=== PATIENT | male | born 1950 | race Caucasian/White ===

== ENCOUNTER 2017-01-12 07:01 | Observation (INO) | payer MEDICARE, OTHER ==
[~2017-01-12] VITALS: Ht 170.2 cm; Wt 84.0 kg
[2017-01-12] VITALS (12 sets, daily range): BP systolic 134–172; BP diastolic 65–82; PULSE 54–72; RESP 16–21; TEMP 98–98.4; O2SAT 96–100
[~2017-01-12 07:01] MED LIST: TAB-TAB PO; TYLOX PO
--- NOTE | 2017-01-12 07:25 | PD ---
HPI Chief Complaint: Chest Pain Time Seen by Provider: 07:15 Travel History International Travel<30 days: No Contact w/Intl Traveler<30days: No Traveled to known affect area: No History of Present Illness HPI 66-year-old male complains of chest pain. Patient states that he has intermittent chest pain for about a week and a half. Patient states that the chest pain became persistent for the past 4-5 days. Patient states the pain aching pain started on the left chest with radiation left-sided neck and left arm. Patient states that he has history of recurrent neck pain and shoulder pain is not sure the pain related to the chest pain. Patient states that he has nausea. Patient denies diaphoresis. Patient denies palpitation. Patient states that the chest pain is not associated with exertion. Patient states the chest pain is worse at night. Patient denies history hypertension, diabetes. Patient has history of hyperlipidemia. Patient is not on medication for that. Patient states that he was given medication for hyperlipidemia in the past however unable to tolerated. Patient is a nonsmoker. Patient has family history of heart disease. Patient states that he takes aspirin daily. Last dose of aspirin was last night. PFSH Past Medical History Cardiovascular Problems: No High Cholesterol: Yes Diabetes: No Diminished Hearing: No Hypertension: Yes Influenza Vaccination: No Social History Alcohol Use: Yes (OCCASIONALLY) Tobacco Use: No Substance Use: Yes (OCCASIONAL MARIJUANA) Allergies-Medications (Allergen,Severity, Reaction): Coded Allergies: ampicillin (Unverified Adverse Reaction, Severe, NAUSEA, 10/27/16) Reported Meds & Prescriptions Reported Meds & Active Scripts Active Reported Aspirin 81 (Aspirin) 81 Mg Tabdr 81 Mg PO DAILY Review of Systems General / Constitutional: No: Fever Eyes: No: Visual changes HENT: No: Headaches Cardiovascular: Positive: Chest Pain or Discomfort Respiratory: No: Shortness of Breath Gastrointestinal: No: Abdominal Pain Genitourinary: No: Dysuria Musculoskeletal: No: Pain Skin: No Rash Neurologic: No: Weakness Psychiatric: No: Depression Endocrine: No: Polydipsia Hematologic/Lymphatic: No: Easy Bruising Physical Exam Narrative GENERAL: Well-nourished, well-developed patient. SKIN: Focused skin assessment warm/dry. HEAD: Normocephalic. EYES: No scleral icterus. No injection or drainage. NECK: Supple, trachea midline. No JVD or lymphadenopathy. CARDIOVASCULAR: Regular rate and rhythm without murmurs, gallops, or rubs. RESPIRATORY: Breath sounds equal bilaterally. No accessory muscle use. GASTROINTESTINAL: Abdomen soft, non-tender, nondistended. MUSCULOSKELETAL: No cyanosis, or edema. BACK: Nontender without obvious deformity. No CVA tenderness. Neurologic exam normal. Data Data Last Documented VS Vital Signs Date Time Temp Pulse Resp B/P (MAP) Pulse Ox O2 Delivery O2 Flow Rate FiO2 01/12/17 07:11 Room Air 01/12/17 07:02 98.0 64 16 158/79 (105) 97 Orders Orders Electrocardiogram (01/12/17 ) Complete Blood Count With Diff (01/12/17 07:21) Comprehensive Metabolic Panel (01/12/17 07:21) Creatine Kinase (Cpk) (01/12/17 07:21) Troponin I (01/12/17 07:21) Prothrombin Time / Inr (Pt) (01/12/17 07:21) Act Partial Throm Time (Ptt) (01/12/17 07:21) Chest, Single Ap (01/12/17 07:21) Iv Access Insert/Monitor (01/12/17 07:21) Ecg Monitoring (01/12/17 07:21) Oximetry (01/12/17 07:21) Labs Laboratory Tests Test 01/12/17 07:28 White Blood Count 5.8 TH/MM3 Red Blood Count 4.80 MIL/MM3 Hemoglobin 15.0 GM/DL Hematocrit 44.2 % Mean Corpuscular Volume 92.0 FL Mean Corpuscular Hemoglobin 31.3 PG Mean Corpuscular Hemoglobin Concent 34.0 % Red Cell Distribution Width 13.4 % Platelet Count 168 TH/MM3 Mean Platelet Volume 9.3 FL Neutrophils (%) (Auto) 51.7 % Lymphocytes (%) (Auto) 39.5 % Monocytes (%) (Auto) 6.8 % Eosinophils (%) (Auto) 1.0 % Basophils (%) (Auto) 1.0 % Neutrophils # (Auto) 3.0 TH/MM3 Lymphocytes # (Auto) 2.3 TH/MM3 Monocytes # (Auto) 0.4 TH/MM3 Eosinophils # (Auto) 0.1 TH/MM3 Basophils # (Auto) 0.1 TH/MM3 CBC Comment DIFF FINAL Differential Comment Prothrombin Time 10.9 SEC Prothromb Time International Ratio 1.0 RATIO Activated Partial Thromboplast Time 25.0 SEC Blood Urea Nitrogen 15 MG/DL Creatinine 0.99 MG/DL Random Glucose 93 MG/DL Total Protein 6.8 GM/DL Albumin 3.7 GM/DL Calcium Level 8.8 MG/DL Alkaline Phosphatase 50 U/L Aspartate Amino Transf (AST/SGOT) 16 U/L Alanine Aminotransferase (ALT/SGPT) 30 U/L Total Bilirubin 0.6 MG/DL Sodium Level 141 MEQ/L Potassium Level 3.8 MEQ/L Chloride Level 105 MEQ/L Carbon Dioxide Level 31.3 MEQ/L Anion Gap 5 MEQ/L Estimat Glomerular Filtration Rate 75 ML/MIN Total Creatine Kinase 124 U/L Troponin I 0.02 NG/ML MDM Medical Decision Making Medical Screen Exam Complete: Yes Emergency Medical Condition: Yes Interpretation(s) Last Impressions Chest X-Ray 01/12/17720 Signed Impressions: Service Date/Time: Thursday, January 12, 2017 07:45 - CONCLUSION: No acute disease. Juventino Fuller MD 8:12 AM. CBC within normal limit. CMP within normal limit. Cardiac enzymes are normal. Differential Diagnosis Differential diagnosis including musculoskeletal, angina, NE, PE, pneumothorax. Narrative Course 66-year-old male with left-sided chest pain. Aspirin 325 mg by mouth. Patient will be admitted to the chest pain center. Diagnosis Primary Impression: Chest pain Qualified Codes: R07.9 - Chest pain, unspecified Admitting Information Admitting Physician Requests: Pancho Baker MD Jan 12, 2017 07:25
[2017-01-12] MEDS ORDERED: ASPI-110 PO (07:37)
[2017-01-12 07:43] LABS: BASOPHIL # 0.1 TH/MM3 (0-0.2); EOSINOPHIL # 0.1 TH/MM3 (0-0.4); HEMATOCRIT 44.2 % (39.0-51.0); LYMPH % 39.5 % (9.0-44.0); LYMPHOCYTE # 2.3 TH/MM3 (1.0-4.8); MEAN CORPUSCULAR HEMOGLOBIN 31.3 PG (27.0-34.0); MEAN PLATELET VOLUME 9.3 FL (7.0-11.0); MONO % 6.8 % (0.0-8.0); MONOCYTE # 0.4 TH/MM3 (0-0.9); NEUT % 51.7 % (16.0-70.0); PLATELET COUNT 168 TH/MM3 (150-450); RED CELL DISTRIBUTION WIDTH 13.4 % (11.6-17.2); WHITE BLOOD COUNT 5.8 TH/MM3 (4.0-11.0)
[2017-01-12 07:54] LABS: PROTHROMBIN TIME - PATIENT 10.9 SEC (9.8-11.6)
--- NOTE | 2017-01-12 07:55 | RADRPT ---
EXAM DATE/TIME: 01/12/2017 07:45 [facility] COMPARISON: No previous studies available for comparison. INDICATIONS : Midsternal chest pains radiating into left shoulder. MEDICAL HISTORY : Spinal stenosis SURGICAL HISTORY : Cervical fusion ENCOUNTER: Initial ACUITY: 4 - 6 days PAIN SCORE: 5/10 LOCATION: Left chest FINDINGS: A single view of the chest demonstrates the lungs to be symmetrically aerated without evidence of mas s, infiltrate or effusion. The cardiomediastinal contours are unremarkable. Postsurgical changes are identified in the cervical spine following anterior and posterior fusion. Old right-sided rib fractu res are noted. CONCLUSION: No acute disease. Juventino Fuller MD on January 12, 2017 at 7:53 Board Certified Radiologist. This report was verified electronically.
[2017-01-12 08:05] LABS: ALBUMIN 3.7 GM/DL (3.4-5.0); ALT (GPT) 30 U/L (12-78); AST (GOT) 16 U/L (15-37); BICARBONATE 31.3 MEQ/L (21.0-32.0); BLOOD UREA NITROGEN 15 MG/DL (7-18); CALCIUM 8.8 MG/DL (8.5-10.1); CHLORIDE 105 MEQ/L (98-107); CREATININE 0.99 MG/DL (0.60-1.30); GLOMERULAR FILTRATION RATE 75 ML/MIN (>89); GLUCOSE,RANDOM 93 MG/DL (74-106); SODIUM (NA) 141 MEQ/L (136-145)
[2017-01-12 08:09] LABS: ALKALINE PHOSPHATASE 50 U/L (45-117); TOTAL BILIRUBIN ADULT 0.6 MG/DL (0.2-1.0); TOTAL PROTEIN 6.8 GM/DL (6.4-8.2); TROPONIN I 0.02 NG/ML (0.02-0.05)
[2017-01-12] MEDS ORDERED: ASPIRIN 81 MG CHEW TAB PO ONE (08:30)
[2017-01-12] MEDS ORDERED: ACETAMINOPHEN 500 MG CPLT PO PRN (08:30)
[2017-01-12] MEDS ORDERED: ASPIRIN 81 MG CHEW TAB CHEW ONE (08:30)
[2017-01-12] MEDS ORDERED: SODIUM CHLORIDE 0.9% FLUSH 10 ML FLUSH IV FLUSH PRN (08:30)
[2017-01-12] MEDS ORDERED: ONDANSETRON HCL 4 MG/2 ML VIAL IV PUSH PRN (09:30)
[2017-01-12] MEDS ORDERED: NITROGLYCERIN 0.4 MG SL 25 TABS/BTL SL PRN (09:30)
[2017-01-12 11:32] LABS: TROPONIN I 0.02 NG/ML (0.02-0.05)
--- NOTE | 2017-01-12 14:28 | EKG ---
Date Performed: 01/12/2017 Time Performed: 10:45:13 PTAGE: 66 years EKG: SINUS BRADYCARDIA POSSIBLE INFERIOR MYOCARDIAL INFARCTION BORDERLINE ECG Since PREVIOUS TRACING , no significant change noted PREVIOUS TRACIN01/12/2017 07.31 DOCTOR: Aspen Kellogg Interpretating Date/Time 01/12/2017 14:27:24
--- NOTE | 2017-01-12 14:31 | HHI.HP ---
HPI Primary Care Physician PCP in [place] Chief Complaint Chest pain History of Present Illness 66-year-old male with history of hyperlipidemia (not currently on medications) presents to emergency room for further evaluation of chest pain. The last 2 weeks hasn't felt himself and experiencing fatigue. Reporting the last 4-5 days becoming worse, accompanied with a poor appetite,and chest pain. Location left anterior chest. Characterized as a "constant irritation." Denies discomfort to be dull, sharp, or exacerbated with exertion. Severity 03/24. No radiation of pain. Duration intermittent experiencing more pain than not. No associated symptoms of nausea, vomiting, dyspnea, or diaphoresis. No known precipitating factors. Relieving factors include stretching, exercising, or moving around. Pain goes away except with sleep, but returns once awakens. Taking a deep breath makes pain worse. No recent illness, fever, chills, injury , or recent trauma. Denies similar pain in the past. Review of Systems General: Fatigue 1-2 weeks, No weakness, fever, chills, or recent illness. Decrease appetite past week. HEENT: No OSORIO, no dysphasia CV: Continues to have chest pain as described above. No palpitations or dizziness. RESP: No SOB, cough, wheeze, recent respiratory illness, or sputum production. GI: No nausea, vomiting, or bowel changes, or diarrhea. No unintentional weight gain or weight loss. : No dysuria EXT: No lower leg edema, no paraesthesias MS: No discomfort, change in ROM, injury, or recent trauma. Chronic neck pain, past cervical surgeries. NEURO: No difficulty with balance, LOC, or motor/sensory deficits PSYCH: No anxiety, depression, or situational stress SKIN: No rashes, no concerning lesions Past Family Social History Allergies: Coded Allergies: ampicillin (Unverified Adverse Reaction, Severe, NAUSEA, 10/27/16) Past Medical History Hyperlipidemia, chronic neck and right shoulder pain Past Surgical History Cervical surgery Reported Medications Reported Meds & Active Scripts Active Reported Aspirin 81 (Aspirin) 81 Mg Tabdr 81 Mg PO DAILY Multiple vitamins. States taking 6-8 multiple vitamins, including a cholesterol vitamin, can't remember names of all vitamins. Unable to tolerate statins. Reports attempting multiple cholesterol medications. Active Ordered Medications Current Medications Medications (Trade) Dose Ordered Sig/Heron Route Start Time Stop Time Status Last Admin (NS Flush) 2 ml UNSCH PRN IV FLUSH 01/12/17 08:30 (NS Flush) 2 ml BID IV FLUSH 01/12/17 09:00 (Tylenol) 500 mg Q4H PRN PO 01/12/17 08:30 (Zofran Inj) 4 mg Q6H PRN IV PUSH 01/12/17 09:30 (Nitrostat Sl) 0.4 mg Q5M PRN SL 01/12/17 09:30 (Aspirin) 325 mg DAILY PO 01/13/17 09:00 Family History Noncontributory for early onset cardiovascular disease in mother, father, or siblings. Reports maternal uncle and most of his cousins have early onset cardiovascular disease. Social History No known coronary artery disease, hypertension, or diabetes. Known hyperlipidemia, statin intolerant. Quit smoking 40 years ago. Endorses social alcohol, amount varies. Denies any illegal drug use. Endorses an active lifestyle which includes contreras chi, weight lifting, cycling, and stretching. Lives in [place] in summer months and in [place] generally in winter months. Planning a trip to [place], leaving , will be gone for 3 months. Past cardiac testing None Physical Exam Vital Signs Vital Signs Date Time Temp Pulse Resp B/P (MAP) Pulse Ox O2 Delivery O2 Flow Rate FiO2 01/12/17 10:13 98.2 57 18 145/69 (94) 98 01/12/17 09:07 01/12/17 09:07 56 21 172/82 (112) 100 Room Air 01/12/17 08:30 97 21 01/12/17 07:11 Room Air 01/12/17 07:02 98.0 64 16 158/79 (105) 97 Room Air Physical Exam GENERAL: Alert WN, WD, NAD, male HEAD: NC, AT EYES: Sclera clear, conjunctiva without injection ENT: Mucous membranes pink and moist NECK: Supple, no masses, trachea midline CV: RRR, without murmur, rub, gallop, no JVD, S1-S2 no S3-S4. No carotid bruits. Chest wall pain reproducible with palpation. RESP: Clear lungs throughout bilateral, no crackles, wheeze, rhonchi, symmetrical chest rise, nonlabored, able to speak in full sentences ABD: Soft, NT, ND, no masses EXT: Pulses +24, no dependent edema MS: Normal tone 4 extremities, no obvious deformities, full range of motion NEURO: CN II through CN XII grossly intact, motor strength 5/5, gait WNL PSYCH: A+O 3, flat affect, appropriate speech, appropriate mood and affect, insight and judgment SKIN: Normal turgor, normal texture, no lesions, no rashes, brisk cap refill, even hair distribution Laboratory Laboratory Tests Test 01/12/17 07:28 01/12/17 10:35 White Blood Count 5.8 Red Blood Count 4.80 Hemoglobin 15.0 Hematocrit 44.2 Mean Corpuscular Volume 92.0 Mean Corpuscular Hemoglobin 31.3 Mean Corpuscular Hemoglobin Concent 34.0 Red Cell Distribution Width 13.4 Platelet Count 168 Mean Platelet Volume 9.3 Neutrophils (%) (Auto) 51.7 Lymphocytes (%) (Auto) 39.5 Monocytes (%) (Auto) 6.8 Eosinophils (%) (Auto) 1.0 Basophils (%) (Auto) 1.0 Neutrophils # (Auto) 3.0 Lymphocytes # (Auto) 2.3 Monocytes # (Auto) 0.4 Eosinophils # (Auto) 0.1 Basophils # (Auto) 0.1 CBC Comment DIFF FINAL Differential Comment Prothrombin Time 10.9 Prothromb Time International Ratio 1.0 Activated Partial Thromboplast Time 25.0 Blood Urea Nitrogen 15 Creatinine 0.99 Random Glucose 93 Total Protein 6.8 Albumin 3.7 Calcium Level 8.8 Alkaline Phosphatase 50 Aspartate Amino Transf (AST/SGOT) 16 Alanine Aminotransferase (ALT/SGPT) 30 Total Bilirubin 0.6 Sodium Level 141 Potassium Level 3.8 Chloride Level 105 Carbon Dioxide Level 31.3 Anion Gap 5 Estimat Glomerular Filtration Rate 75 Total Creatine Kinase 124 103 Troponin I 0.02 0.02 Creatine Kinase MB 1.2 Result Diagram: 01/12/1772701/12/17727 Imaging Last Impressions Chest X-Ray 01/12/17720 Signed Impressions: Service Date/Time: Thursday, January 12, 2017 07:45 - CONCLUSION: No acute disease. Juventino Fuller MD Course EKG Normal sinus bradycardia, small q waves inferiorly, no ST or T-segment changes Caprini VTE Risk Assessment Caprini VTE Risk Assessment: Mod/High Risk (score >= 2) Caprini Risk Assessment Model Point Value = 1 Point Value = 2 Point Value = 3 Point Value = 5 Age 41-60 Minor surgery BMI > 25 kg/m2 Swollen legs Varicose veins or History of unexplained or recurrent spontaneous Oral contraceptives or hormone replacement Sepsis (< 1 month) Serious lung disease, including pneumonia (< 1 month) Abnormal pulmonary function Acute myocardial infarction Congestive heart failure (< 1 month) History of inflammatory bowel disease Medical patient at bed rest Age 61-74 Arthroscopic surgery Major open surgery (> 45 min) Laparoscopic surgery (> 45 min) Malignancy Confined to bed (> 72 hours) Immobilizing plaster cast Central venous access Age >= 75 History of VTE Family history of VTE Factor V Leiden Prothrombin [id number] Lupus anticoagulant Anticardiolipin antibodies Elevated serum homocysteine Heparin-induced thrombocytopenia Other congenital or acquired thrombophilia Stroke (< 1 month) Elective arthroplasty Hip, pelvis, or leg fracture Acute spinal cord injury (< 1 month) Prophylaxis Regimen Total Risk Factor Score Risk Level Prophylaxis Regimen 0-1 Low Early ambulation 2 Moderate Order ONE of the following: *Sequential Compression Device (SCD) *Heparin 5000 units SQ BID 3-4 Higher Order ONE of the following medications: *Heparin 5000 units SQ TID *Enoxaparin/Lovenox 40 mg SQ daily (WT < 150 kg, CrCl > 30 mL/min) *Enoxaparin/Lovenox 30 mg SQ daily (WT < 150 kg, CrCl > 10-29 mL/min) *Enoxaparin/Lovenox 30 mg SQ BID (WT < 150 kg, CrCl > 30 mL/min) AND/OR *Sequential Compression Device (SCD) 5 or more Highest Order ONE of the following medications: *Heparin 5000 units SQ TID (Preferred with Epidurals) *Enoxaparin/Lovenox 40 mg SQ daily (WT < 150 kg, CrCl > 30 mL/min) *Enoxaparin/Lovenox 30 mg SQ daily (WT < 150 kg, CrCl > 10-29 mL/min) *Enoxaparin/Lovenox 30 mg SQ BID (WT < 150 kg, CrCl > 30 mL/min) AND *Sequential Compression Device (SCD) Assessment and Plan Assessment and Plan #1 Atypical chest pain-admitted to chest pain center. Ruled out with 3 sets of EKGs and cardiac enzymes. Will be seen and evaluated by Dr. Aspen Kellogg. Discussed the likelihood of completing exercise stress test after being seen by grinder mill operator. Patient is agreeable to plan of care, although is somewhat irritated and stating he would sign out AMA if his insurance would still cover visit. Agrees to wait for grinder mill operator and possible stress testing at this time. #2 Musculoskeletal pain-Toradol 30mg IV x1 dose rAiana Mcdonald Jan 12, 2017 14:31
--- NOTE | 2017-01-12 14:35 | EKG ---
Date Performed: 01/12/2017 Time Performed: 07:31:27 PTAGE: 66 years EKG: SINUS BRADYCARDIA INFERIOR MYOCARDIAL INFARCTION ABNORMAL ECG Since PREVIOUS TRACING , no significant change noted PREVIOUS TRACIN05/11/2008 06.34 DOCTOR: Aspen Kellogg Interpretating Date/Time 01/12/2017 14:32:56
[2017-01-12 15:19] LABS: TROPONIN I 0.02 NG/ML (0.02-0.05)
[2017-01-12] MEDS: SODIUM CHLORIDE 0.9% FLUSH 10 ML FLUSH IV FLUSH SCH (23:00)
[2017-01-13 03:14] VITALS: BP 130/61; PULSE 75; RESP 17; TEMP 98.1; O2SAT 98
[2017-01-13 04:05] VITALS: PULSE 52
[2017-01-13 07:39] VITALS: BP 132/66; PULSE 56; RESP 18; TEMP 98.2; O2SAT 96
[2017-01-13 08:00] VITALS: PULSE 66
[2017-01-13] MEDS: SODIUM CHLORIDE 0.9% FLUSH 10 ML FLUSH IV FLUSH SCH (09:00)
[2017-01-13] MEDS ORDERED: ASPIRIN 325 MG TAB PO SCH (09:00)
--- NOTE | 2017-01-13 11:08 | RADRPT ---
EXAM DATE/TIME: 01/13/2017 08:36 [facility] COMPARISON: No previous studies available for comparison. INDICATIONS : Mid chest pain for two weeks. Angina DOSE: 25.9 mCi Tc99m Myoview at stress 8.7 mCi Tc99m Myoview at rest REST HEART RATE: 72 BPM TARGET HEART RATE: 129 BPM MAX HEART RATE: 130 BPM REST BLOOD PRESSURE: 128/80 mmHg MAX BLOOD PRESSURE: 164/74 mmHg EJECTION FRACTION: 67% MEDICAL HISTORY : None SURGICAL HISTORY : Fusion, cervical. ENCOUNTER: Initial ACUITY: 2 weeks PAIN SCALE: 1/10 LOCATION: Midsternal chest TECHNIQUE: The patient underwent upright treadmill exercise in the chest pain center. Continuous ECG tracing wa s monitored during stress. Gated SPECT imaging was performed after stress, and conventional SPECT im aging was performed at rest. The examination was performed on a SPECT/CT scanner, both attenuation-c orrected and non-corrected datasets were reviewed. Target heart rate was 86% of Max. FINDINGS: DISTRIBUTION: The maximum perfused segment at stress is in the anterior lateral PERFUSION STUDY: The pattern of perfusion at stress is within normal limits. GATED STUDY: There is intact wall motion and thickening without hypokinetic or dyskinetic segments. CONCLUSION: Negative for stress-induced ischemia. Heart rate was 86% Max.. Correlation is suggested. RISK CATEGORY: Low (<1% Annual Mortality Rate) Allen Lynne MD FACR on January 13, 2017 at 11:05 Board Certified Radiologist. This report was verified electronically.
--- NOTE | 2017-01-13 11:20 | HHI.DCPOC ---
Discharge Care Plan Diagnosis: (1) Atypical chest pain Goals to Promote Your Health * To prevent worsening of your condition and complications * To maintain your health at the optimal level Directions to Meet Your Goals Take your medications as prescribed Follow your dietary instruction Follow activity as directed Keep your appointments as scheduled Take your immunizations and boosters as scheduled If your symptoms worsen call your PCP, if no PCP go to Urgent Care Center or Emergency Room Smoking is Dangerous to Your Health. Avoid second hand smoke Call the 24-hour hour crisis hotline for domestic abuse at Ariana Mcdonald Jan 13, 2017 11:20
--- NOTE | 2017-01-13 11:20 | HHI.DCPOC ---
Discharge Care Plan Diagnosis: (1) Atypical chest pain Goals to Promote Your Health * To prevent worsening of your condition and complications * To maintain your health at the optimal level Directions to Meet Your Goals Take your medications as prescribed Follow your dietary instruction Follow activity as directed Keep your appointments as scheduled Take your immunizations and boosters as scheduled If your symptoms worsen call your PCP, if no PCP go to Urgent Care Center or Emergency Room Smoking is Dangerous to Your Health. Avoid second hand smoke Call the 24-hour hour crisis hotline for domestic abuse at Ariana Mcdonald Jan 13, 2017 11:20
--- NOTE | 2017-01-13 11:20 | HHI.DCPOC ---
Discharge Care Plan Diagnosis: (1) Atypical chest pain Goals to Promote Your Health * To prevent worsening of your condition and complications * To maintain your health at the optimal level Directions to Meet Your Goals Take your medications as prescribed Follow your dietary instruction Follow activity as directed Keep your appointments as scheduled Take your immunizations and boosters as scheduled If your symptoms worsen call your PCP, if no PCP go to Urgent Care Center or Emergency Room Smoking is Dangerous to Your Health. Avoid second hand smoke Call the 24-hour hour crisis hotline for domestic abuse at Ariana Mcdonald Jan 13, 2017 11:20
--- NOTE | 2017-01-13 11:25 | HHI.DS ---
Discharge Summary Admission Date Jan 12, 2017 at 08:17 Discharge Date: Jan 13, 2017 Admitting Diagnosis chest pain Brief History 66 year old male with history of hyperlipidemia currently not on medication presents to emergency room for further evaluation intermittent chest pain 2 weeks. Ruled out with 3 sets of EKGs and cardiac enzymes. Completed exercise stress test which was a borderline finding due to inferior T-wave inversions. Monitored overnight. Nuclear treadmill test completed next morning with did not suggest stress-induced ischemia. CBC/BMP: 01/12/1728 01/12/17727 Significant Findings Laboratory Tests Test 01/12/17 07:28 01/12/17 10:35 01/12/17 14:00 Estimat Glomerular Filtration Rate 75 ML/MIN (>89) Imaging Last Impressions Myocardial Perfusion Scan Nuc Med 01/13/17 0700 Signed Impressions: Service Date/Time: Friday, January 13, 2017 08:36 - CONCLUSION: Negative for stress-induced ischemia. Heart rate was 86%% Max.. Correlation is suggested. RISK CATEGORY: Low (<1%% Annual Mortality Rate) Allen Lynne MD FACR Chest X-Ray 01/12/17 0721 Signed Impressions: Service Date/Time: Thursday, January 12, 2017 07:45 - CONCLUSION: No acute disease. Juventino Fuller MD PE at Discharge GENERAL: Alert WN, WD, NAD, pleasant, male HEAD: NC, AT CV: RRR, without murmur, rub, gallop, no JVD, S1-S2 no S3-S4. EXT: Pulses +24, no dependent edema MS: Normal tone 4 extremities, no obvious deformities, full range of motion NEURO: CN II through CN XII grossly intact, motor strength 5/5, gait WNL PSYCH: A+O 3, pleasant affect, appropriate speech, appropriate mood and affect , insight and judgment SKIN: Normal turgor, normal texture, no lesions, no rashes, brisk cap refill, even hair distribution Pt Condition on Discharge: Good Discharge Disposition: Discharge Home Discharge Instructions DIET: Follow Instructions for: Heart Healthy Diet Activities you can perform: Regular-No Restrictions Ariana Mcdonald Jan 13, 2017 11:25
--- NOTE | 2017-01-13 11:43 | EKG ---
Date Performed: 01/12/2017 Time Performed: 14:37:59 PTAGE: 66 years EKG: SINUS BRADYCARDIA ABNORMAL ECG PREVIOUS TRACING : 01/12/2017 10.45 Since previous tracing, no significant change noted DOCTOR: Peter Cook Interpretating Date/Time 01/13/2017 11:42:55
--- NOTE | 2017-01-13 11:46 | TR ---
Date Performed: 01/12/2017 Time Performed: 18:11:43 DOCTOR: Peter Cook DRUG LIST: CLINICAL HISTORY: REASON FOR TEST: Chest pain REASON FOR ENDING: OBSERVATION: CONCLUSION: Mohan protocol completed. Stopped sec to exceeding target heart rate and leg fatigue . Maximum WD=929 Target HR Achieved=88.0% Maximum CB=591/86. No reprod chest pain. Rare PVC, occassio nal PACs. No st segment changes to sugg ischemia. Interior leads occassional t wave inversions. Good exercise tolerance. Normal bp response. Recovery quick and unremarkable. COMMENTS: Patient exercised using the Mohan protocol. No electrocardiographic changes were seen to suggest ischemia. Hemodynamic response to exercise was normal. No significant arrhythmia was prese nt.
--- NOTE | 2017-01-13 11:46 | TR ---
Date Performed: 01/13/2017 Time Performed: 09:27:07 DOCTOR: Peter Cook DRUG LIST: CLINICAL HISTORY: REASON FOR TEST: REASON FOR ENDING: OBSERVATION: CONCLUSION: Mohan protocol completed. Stopped sec to reaching target heart rate and leg fatigue. Maximum MD=891 Target HR Achieved=86.0% Maximum BM=753/74 Total Exercise Time=9:01. No reprod chest pain. No st or t segment changes. One couplet during exam, otherwise no ectopy. Normal bp response. G reat exercise tolerance. Recovery quick and unremarkable. Nuclear images. COMMENTS: Patient exercised using the Mohan protocol. No electrocardiographic changes were seen to suggest ischemia. Hemodynamic response to exercise was normal. No significant arrhythmia was prese nt.
--- NOTE | 2017-01-13 11:46 | TR ---
Date Performed: 01/13/2017 Time Performed: 09:27:07 DOCTOR: Peter Cook DRUG LIST: CLINICAL HISTORY: REASON FOR TEST: REASON FOR ENDING: OBSERVATION: CONCLUSION: Mohan protocol completed. Stopped sec to reaching target heart rate and leg fatigue. Maximum NK=200 Target HR Achieved=86.0% Maximum CW=581/74 Total Exercise Time=9:01. No reprod chest pain. No st or t segment changes. One couplet during exam, otherwise no ectopy. Normal bp response. G reat exercise tolerance. Recovery quick and unremarkable. Nuclear images. COMMENTS: Patient exercised using the Mohan protocol. No electrocardiographic changes were seen to suggest ischemia. Hemodynamic response to exercise was normal. No significant arrhythmia was prese nt.
--- NOTE | 2017-01-13 11:46 | TR ---
Date Performed: 01/12/2017 Time Performed: 18:11:43 DOCTOR: Peter Cook DRUG LIST: CLINICAL HISTORY: REASON FOR TEST: Chest pain REASON FOR ENDING: OBSERVATION: CONCLUSION: Mohan protocol completed. Stopped sec to exceeding target heart rate and leg fatigue . Maximum IA=905 Target HR Achieved=88.0% Maximum LI=171/86. No reprod chest pain. Rare PVC, occassio nal PACs. No st segment changes to sugg ischemia. Interior leads occassional t wave inversions. Good exercise tolerance. Normal bp response. Recovery quick and unremarkable. COMMENTS: Patient exercised using the Mohan protocol. No electrocardiographic changes were seen to suggest ischemia. Hemodynamic response to exercise was normal. No significant arrhythmia was prese nt.
--- NOTE | 2017-01-13 11:46 | TR ---
Date Performed: 01/12/2017 Time Performed: 18:11:43 DOCTOR: Peter Cook DRUG LIST: CLINICAL HISTORY: REASON FOR TEST: Chest pain REASON FOR ENDING: OBSERVATION: CONCLUSION: Mohan protocol completed. Stopped sec to exceeding target heart rate and leg fatigue . Maximum VD=360 Target HR Achieved=88.0% Maximum ZO=703/86. No reprod chest pain. Rare PVC, occassio nal PACs. No st segment changes to sugg ischemia. Interior leads occassional t wave inversions. Good exercise tolerance. Normal bp response. Recovery quick and unremarkable. COMMENTS: Patient exercised using the Mohan protocol. No electrocardiographic changes were seen to suggest ischemia. Hemodynamic response to exercise was normal. No significant arrhythmia was prese nt.
--- NOTE | 2017-01-13 11:46 | TR ---
Date Performed: 01/13/2017 Time Performed: 09:27:07 DOCTOR: Peter Cook DRUG LIST: CLINICAL HISTORY: REASON FOR TEST: REASON FOR ENDING: OBSERVATION: CONCLUSION: Mohan protocol completed. Stopped sec to reaching target heart rate and leg fatigue. Maximum AE=234 Target HR Achieved=86.0% Maximum KR=956/74 Total Exercise Time=9:01. No reprod chest pain. No st or t segment changes. One couplet during exam, otherwise no ectopy. Normal bp response. G reat exercise tolerance. Recovery quick and unremarkable. Nuclear images. COMMENTS: Patient exercised using the Mohan protocol. No electrocardiographic changes were seen to suggest ischemia. Hemodynamic response to exercise was normal. No significant arrhythmia was prese nt.
== END 2017-01-13 12:45 | disposition home or self-care (01) ==
LOC: NEPE 07:01 → NEDA 08:17 → NEPHCDU 09:54
PROVIDERS: ADMIT Internal Medicine Interventional Cardiology; ATTEND Internal Medicine Interventional Cardiology
DX: R07.89 Other chest pain (principal); M54.2 Cervicalgia; M25.511 Pain in right shoulder; I10 Essential (primary) hypertension; E78.00 Pure hypercholesterolemia, unspecified; Z87.891 Personal history of nicotine dependence; R94.31 Abnormal electrocardiogram [ECG] [EKG]; Z82.49 Family history of ischemic heart disease and other diseases of the circulatory system; Z79.82 Long term (current) use of aspirin
CPT/HCPCS: 71010; 78452; 80053; 82550; 82552; 84484; 85025; 85610; 85730; 93005; 93017; 99285; A9502; G0378